=== PATIENT | male | born 1990 | race African-American/Black ===

== ENCOUNTER → 2023-11-18 | Emergency (ER) | payer OTHER ==
[~2023-11-18] MED LIST: AMOX/K CLAV 875 MG TAB ONE; CEFAZOLIN SODIUM 1 GM/VIAL ONE; LIDOCAINE 2% MPF 5 ML VIAL ONE; MORPHINE 4 MG/ML SYR ONE; NA CHLORIDE 0.9% 1,000 ML ONE; NA CHLORIDE 0.9% 100 ML ONE; WATER FOR INJ,STERILE 10 ML ONE
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
[2023-11-18 22:13] VITALS: BP 134/78; TEMP 97.9; O2SAT 100
== END ==
LOC: ER 18:10
PROC: 0HQ1XZZ Repair Face Skin, External Approach (ICD-10-PCS; principal; 2023-11-18)
DX: S02.2XXA Fracture of nasal bones, initial encounter for closed fracture (principal); S01.81XA Laceration without foreign body of other part of head, initial encounter
CPT/HCPCS: 70450; 72125; 70486; 76377; 12013; J2001; J0690; J7030